=== PATIENT | female | born 1990 | race Two or more races ===

== ENCOUNTER → 2017-11-02 | Emergency (ER) | payer OTHER ==
[~2017-11-02] VITALS: Ht 167.6 cm; Wt 86.2 kg
[~2017-11-02] MED LIST: CEFUROXIME500 MG PO; CIPRO500 MG PO; INTEGRA PLUS C1 EACH PO; KETO10TA2 PO; PRENATAL1 TAB; SYNTHROID50 MCG
== END | disposition home or self-care (01) ==
LOC: ER 17:57
DX: D25.1 Intramural leiomyoma of uterus (principal); R10.2 Pelvic and perineal pain; N39.0 Urinary tract infection, site not specified

== ENCOUNTER 2018-02-06 14:03 | Emergency (ER) | payer OTHER ==
[~2018-02-06] VITALS: Ht 167.6 cm; Wt 90.7 kg
[2018-02-06] MEDS ORDERED: ORPHENADRINE C100 MG PO (17:02)
[2018-02-06] MEDS ORDERED: KETO10TA2 PO (17:02)
== END 2018-02-06 17:59 | disposition home or self-care (01) ==
LOC: ER 14:03
DX: S30.0XXA Contusion of lower back and pelvis, initial encounter (principal); W18.09XA Striking against other object with subsequent fall, initial encounter; Y93.89 Activity, other specified; Y92.018 Other place in single-family (private) house as the place of occurrence of the external cause; Y99.8 Other external cause status

== ENCOUNTER 2018-09-11 13:12 | Emergency (ER) | payer OTHER ==
[~2018-09-11] VITALS: Ht 167.6 cm; Wt 117.9 kg
[~2018-09-11 13:12] MED LIST changes: +ORPHENADRINE C100 MG PO
== END 2018-09-11 21:03 | disposition home or self-care (01) ==
LOC: ER 13:12
DX: N93.8 Other specified abnormal uterine and vaginal bleeding (principal); R10.2 Pelvic and perineal pain

== ENCOUNTER 2018-09-17 20:13 | Emergency (ER) | payer OTHER ==
[~2018-09-17] VITALS: Ht 167.6 cm; Wt 104.3 kg
== END 2018-09-17 23:45 | disposition home or self-care (01) ==
LOC: ER 20:13
DX: J45.998 Other asthma (principal)